=== PATIENT | male | born 1975 | race African-American/Black ===

== ENCOUNTER 2022-02-15 10:40 | Outpatient (CLI) | payer MEDICARE, MEDICAID ==
[2022-02-15 21:27] LABS: SARS-CoV-2 PCR by NAA Not Detected (NotDetected)
== END 2022-02-15 10:41 | disposition home or self-care (01) ==
LOC: CSHLAB 10:40
PROVIDERS: ATTEND Internal Medicine Nephrology
DX: Z20.822 Contact with and (suspected) exposure to COVID-19 (principal)
CPT/HCPCS: U0003; U0005

== ENCOUNTER 2022-02-19 09:09 | Outpatient (CLI) | payer MEDICARE, MEDICAID | END 2022-02-19 09:10 | disposition home or self-care (01) | LOC: CSHCP 09:09 | PROVIDERS: ATTEND Internal Medicine Critical Care Medicine | DX: J45.909 Unspecified asthma, uncomplicated (principal); R94.2 Abnormal results of pulmonary function studies | CPT/HCPCS: 94060; 94726; 94729; 94760 ==